=== PATIENT | female | born 1945 | race Caucasian/White ===

== ENCOUNTER → 2017-07-15 15:14 | Outpatient (CLI) | payer OTHER, SELFPAY ==
[2017-07-19 15:32] LABS: Ionized Calcium 5.6 mg/dL (4.8-5.6)
== END ==
PROVIDERS: Visit Provider Internal Medicine
DX: E83.52 Hypercalcemia (principal)
CPT/HCPCS: 36415; 82330

== ENCOUNTER → 2017-08-02 09:16 | Outpatient (CLI) | payer OTHER, SELFPAY ==
[2017-08-02 09:33] LABS: Hematocrit 36.3 % (36-46); Hemoglobin 11.7 g/dL (12.0-16.0); Mean Corpuscular HGB Conc 32.2 % (30-36); Mean Corpuscular Hemoglobin 27.7 PG (26-34); Mean Corpuscular Volume 86.1 fL (80-100); Platelet Count 230 X10^3/uL (150-400); Red Blood Cell Count 4.21 X10^6/uL (4.0-5.2); Red Cell Distribution Width 15.4 % (11.6-14.8); White Blood Cell Count 8.8 X10^3/uL (4.5-11.0)
[2017-08-02 10:07] LABS: Erythrocyte Sedimentation Rate 21 MM/HR (0-20)
== END ==
PROVIDERS: PCP Family Medicine; Visit Provider Physician Assistant
DX: M19.079 Primary osteoarthritis, unspecified ankle and foot (principal)
CPT/HCPCS: 36415; 85027; 85651

== ENCOUNTER → 2018-01-30 15:43 | Outpatient (CLI) | payer OTHER, SELFPAY ==
--- NOTE | 2018-01-30 15:45 | DI.RAD.S_ITS ---
PROCEDURE: XR LUMBAR SPINE 2-3V INDICATIONS: R/o osteoporotic fracture TECHNIQUE: 3 views of the lumbar spine were acquired. COMPARISON: [facility], , L-SPINE 2-3 VIEWS, 12/08/2007, 11:10. FINDINGS: Bones: No fracture or focal osseous destruction is seen. Diffuse endplate spurring and sclerosis. Diffuse facet arthropathy. Moderate narrowing of L4-L5 disc space, and mild narrowing of the remaining lumbar disc spaces, this appears progressed since 12/08/07. Levocurvature of the lower thoracic spine Soft tissues: Overlying bowel gas pattern is normal. No suspicious soft tissue calcifications. IMPRESSION: No fracture identified. Interval progression in multilevel lumbar disc degeneration and diffuse facet arthropathy. Levocurvature of the lower thoracic spine Dictated by: Jose Ramon Ruiz M.D. on 01/30/2018 at 16:23 Approved by: Jose Ramon Ruiz M.D. on 01/30/2018 at 16:31
== END ==
PROVIDERS: PCP Family Medicine; Visit Provider Registered Nurse
DX: M54.5 Low back pain (principal); M51.36 Other intervertebral disc degeneration, lumbar region; M47.816 Spondylosis without myelopathy or radiculopathy, lumbar region
CPT/HCPCS: 72100

== ENCOUNTER → 2018-04-14 14:12 | Outpatient (CLI) | payer OTHER, SELFPAY | PROVIDERS: PCP Family Medicine; Visit Provider Family Medicine | DX: Z13.820 Encounter for screening for osteoporosis (principal); M81.0 Age-related osteoporosis without current pathological fracture; Z78.0 Asymptomatic menopausal state; Z79.899 Other long term (current) drug therapy; Z82.62 Family history of osteoporosis | CPT/HCPCS: 77080 ==

== ENCOUNTER → 2018-05-16 09:15 | Outpatient (CLI) | payer OTHER, SELFPAY ==
[2018-05-16 11:33] LABS: BUN Creatinine Ratio 36.3 (6-22); Blood Urea Nitrogen 29 mg/dL (7-17); Calcium 10.9 mg/dL (8.4-10.2); Carbon Dioxide 31 mmol/L (22-32); Chloride 101 mmol/L (98-107); Estimated Glomerular Filt Rate > 60.0 mL/min (>60); Glucose 64 mg/dL (80-110); HEMOLYSIS < 15 (0-50); Potassium 4.1 mmol/L (3.4-5.1); Sodium 140 mmol/L (137-145)
[2018-05-16 11:48] LABS: Vitamin D 25 Hydroxy (D3) 108 ng/mL (30.0-100.0)
[2018-05-16 12:03] LABS: TSH w/ Reflex to FT4 1.61 uIU/mL (0.47-4.68)
== END ==
PROVIDERS: PCP Family Medicine; Visit Provider Family Medicine
DX: M81.0 Age-related osteoporosis without current pathological fracture (principal)
CPT/HCPCS: 36415; 80048; 82306; 84443

== ENCOUNTER → 2018-05-22 15:50 | Outpatient (CLI) | payer OTHER, SELFPAY ==
[2018-05-24 13:35] LABS: Parathyroid Hormone Int 70 pg/mL (14-64)
== END ==
PROVIDERS: PCP Family Medicine; Visit Provider Family Medicine
DX: E83.52 Hypercalcemia (principal)
CPT/HCPCS: 36415; 83970

== ENCOUNTER → 2018-06-16 08:40 | Outpatient (CLI) | payer OTHER, SELFPAY ==
[2018-06-19 16:48] LABS: Total Volume 2300 mL
== END ==
PROVIDERS: PCP Family Medicine; Visit Provider Family Medicine
DX: E21.3 Hyperparathyroidism, unspecified (principal)
CPT/HCPCS: 82530

== ENCOUNTER → 2018-06-24 09:14 | Outpatient (CLI) | payer OTHER, SELFPAY ==
[2018-06-24 10:16] LABS: Calcium 11.2 mg/dL (8.4-10.2)
[2018-06-24 12:01] LABS: Calcium 24 Hour Urine 325 mg/day (100-300); Calcium Urine Random 15.1; Collection Time Urine 24 Hours; Total Volume Urine 2150 mL
== END ==
PROVIDERS: PCP Family Medicine; Visit Provider Family Medicine
DX: E21.3 Hyperparathyroidism, unspecified (principal); E34.9 Endocrine disorder, unspecified; M81.0 Age-related osteoporosis without current pathological fracture
CPT/HCPCS: 36415; 82310; 82340

== ENCOUNTER → 2018-09-04 07:50 | Outpatient (CLI) | payer OTHER, SELFPAY ==
[2018-09-04 09:05] LABS: Calcium 11.1 mg/dL (8.4-10.2); Phosphorous 3.2 mg/dL (2.8-4.1)
[2018-09-04 09:18] LABS: Vitamin D 25 Hydroxy (D3) 105 ng/mL (30.0-100.0)
[2018-09-05 15:18] LABS: Parathyroid Hormone Int 52 pg/mL (14-64)
== END ==
PROVIDERS: PCP Family Medicine; Visit Provider Nurse Practitioner
DX: E21.3 Hyperparathyroidism, unspecified (principal); T45.2X1A Poisoning by vitamins, accidental (unintentional), initial encounter
CPT/HCPCS: 36415; 82306; 82310; 83970; 84100

== ENCOUNTER → 2018-12-01 15:58 | Outpatient (CLI) | payer OTHER, SELFPAY ==
[2018-12-01 16:48] LABS: Estimated Glomerular Filt Rate > 60.0 mL/min (>60)
== END ==
PROVIDERS: PCP Family Medicine; Visit Provider Student in an Organized Health Care Education/Training Program
DX: E21.3 Hyperparathyroidism, unspecified (principal)
CPT/HCPCS: 36415; 82565

== ENCOUNTER 2019-01-03 07:08 | Day surgery (SDC) | payer OTHER, SELFPAY ==
--- NOTE | 2018-12-29 18:37 | PM.PREOP ---
Pre-operative Note Interval Note History & Physical reviewed/Exam performed by Physician: Yes Changes to H&P: No
[2019-01-03 07:25] VITALS: BP 129/78; PULSE 53; RESP 18; TEMP 36.7; O2SAT 100
[2019-01-03] MEDS: PROPARACAINE 0.5% OPHTH SOL 2 DROPS EYE-OP (07:25)
[2019-01-03] MEDS: CATARACT EYE COMPOUND (10 DROPS/SYRINGE) 3 DROPS EYE-OP (07:28)
--- NOTE | 2019-01-03 07:31 | P.OP_ITS ---
Operative Date/Time/Diagnoses Date of procedure: 01/03/19 Time of procedure: 07:45 Procedure & Clinicians Procedure: Preoperative diagnoses: 1. Left cortical advanced cataract surgery . 2. Recent parathyroid surgery. 3. Desire for a multifocal lens. Postoperative diagnoses: Placement of a posterior chamber Symfony depth of focus intraocular lens implant. Surgeon: Viridiana Moreno MD Complications: none Specimen: None Implant: ZXROO +20.0 Blood loss: None Anesthesia: Retrobulbar with monitored standby. Blood loss: None Anesthesia: Retrobulbar with monitored standby Description of procedure: Patient has presented with decreased vision due to cataract which is affecting activities of daily living. The patient wants surgery to improve vision. The patient was taken to the operating room and given IV sedation. A retrobulbar block consisting of 6 cc of 2% xylocaine without epinephrine mixed half and half with 0.5% Marcaine with 1 cc of hyaluronidase added is placed between the medial and lateral 1/3 of the inferior orbital rim. Lid akinesia is obtain with 1% xylocaine with epinephrine infiltrated along the lid margin. The eye is manually massaged for 30 sec, prepped using Betadine solution, and draped in the usual sterile fashion. e-port incision was performed 90 degrees from the planned corneal wound. Phenylephrine 1.5% mixed with 1% xylocaine 0.2 cc was placed into the anterior chamber. Though there was cortical spokes through the visual axis capsular dye was not needed. A 360 degree capsulorrhexis style capsulotomy was then performed with a cystitome needle on a [employer]. Hydrodelineation and hydrodissection were performed. The phacoemulsification unit is introduced, and sculpting used to groove the central lens. It is then removed in chopping mode. Epi nucleus is removed with epinuclear mode and irrigation aspiration was used to remove the peripheral cortex. The posterior capsule is polished. The intraocular lens is selected and confirmed to be a Symfony style and of the correct power confirmed, and placed in the posterior chamber. The pupil was not constricted with Miostat. The wound was stromally hydrated and tested for leaks, there was none and was left sutureless. Vigamox 0.1 cc was placed into the anterior chamber. Kenalog 0.2 cc was placed in the superior subconjunctival space. A drop of antibiotic and was placed and the eye was patched and shielded. The patient was stable and returned to the recovery room in excellent condition. Dictated by: Viridiana Moreno MD Copy to: [facility]
[2019-01-03 07:33] VITALS: BMI 20.7
[2019-01-03] MEDS: ERYTHROMYCIN OPHTH 1 GM OINT 1 APPLIC EYE-LEFT (08:13)
[2019-01-03] MEDS: MOXIFLOXACIN INJ 5 MG/ML VIAL EYE-OP (08:14)
[2019-01-03] MEDS: HYALURONATE SODIUM 10 MG/ML SYRINGE INJ (08:14)
[2019-01-03] MEDS: TRIAMCINOLONE 50 MG/5 ML VIAL INJ (08:15)
[2019-01-03] MEDS: PHENYLEPHRINE/LIDOCAINE VIAL (OR) 0.2 ML EYE-OP (08:15)
[2019-01-03] MEDS: LIDOCAINE 2% 4 ML, BUPIVACAINE 0.5% (PF) 4 ML, HYALURONIDASE 150 UNIT INJ (08:15)
[2019-01-03] MEDS: CHONDROIDTIN/SOD HYALURONATE 1.05 ML SYRINGE INTRAOCULA (08:18)
[2019-01-03 08:40] VITALS: BP 133/81; PULSE 51; RESP 16; TEMP 36.6; O2SAT 100
== END 2019-01-03 09:00 | disposition home or self-care (01) ==
LOC: OR 07:10
PROVIDERS: PCP Family Medicine; Visit Provider Ophthalmology
PROC: (CPT 66984; principal; 2019-01-03 07:45)
DX: H25.012 Cortical age-related cataract, left eye (principal); H43.393 Other vitreous opacities, bilateral; H04.123 Dry eye syndrome of bilateral lacrimal glands
CPT/HCPCS: 66984; J2704; J3301; J3470; V2788

== ENCOUNTER 2019-01-10 07:29 | Day surgery (SDC) | payer OTHER, SELFPAY ==
--- NOTE | 2019-01-09 17:53 | PM.PREOP ---
Pre-operative Note Interval Note History & Physical reviewed/Exam performed by Physician: Yes Changes to H&P: No
--- NOTE | 2019-01-09 17:55 | PM.OP.1 ---
Operative Date/Time/Diagnoses Date of procedure: 01/10/19 Time of procedure: 08:45 Procedure & Clinicians Procedure: Preoperative diagnoses: 1. Right significant nuclear sclerotic and cortical cataract through the visual axis. 2. Elective depth the focus multifocal lens desired. 3. Recent parathyroid surgery. 4. Corneal dystrophy. 5. Dry eye syndrome. Postoperative diagnoses: 1. Cataract removed by phacoemulsification with placement of a Symfony depth of focus posterior chamber intraocular lens. Procedure: Phacoemulsification with posterior chamber intraocular lens implant Surgeon: Viridiana Moreno MD Complications: None Specimen: None Implant: ZXROO+21.0 Blood loss: None Anesthesia: Retrobulbar with monitored standby Description of procedure: Patient presents with a complaint of decreased vision due to cataract which is affecting activities of daily living. This is affecting both her distance and reading vision and she chooses a multifocal implant to improve her non corrected range of vision. The patient wants surgery to improve vision overall and understands she may still need to wear glasses post surgery. The patient was taken to the operating room and given IV sedation. A retrobulbar block consisting of 6 cc of 2% xylocaine without epinephrine mixed half and half with 0.5% Marcaine with 1 cc of hyaluronidase added is placed between the medial and lateral 1/3 of the inferior orbital rim. The eye is manually massaged for 30 sec, prepped using Betadine solution, and draped in the usual sterile fashion. Temporal approach was made, a 1 mm side-port incision was made 90? from the proposed clear corneal incision position. It was noted that there was slight irregularity in her superior cornea before any surgery occurred suggesting corneal dystrophy. There were no erosions during the surgery. Phenylephrine 1.5% mixed with 1% xylocaine 0.2 cc was placed into the anterior chamber. Viscoat followed by Healon was then placed. A 2.6 mm clear incision with a 2.6 mm blade was placed. A 360 degree capsulorrhexis style capsulotomy was then performed with a cystitome needle on a [employer]. Hydrodelineation and hydrodissection were performed. The phacoemulsification unit is introduced, and sculpting notice used to groove the central lens. It is then removed in chopping mode. Epi nucleus is removed with epinuclear mode and irrigation aspiration was used to remove the peripheral cortex. The posterior capsule is polished. The intraocular lens is selected, inspected, power confirmed, and placed in the posterior chamber. It was carefully inspected for centration. The wound was stromally hydrated and tested for leaks, there was none and it was left sutureless. Vigamox 0.1 cc was placed into the anterior chamber. Kenalog 0.2 cc was placed in the superior subconjunctival space. A drop of antibiotic and was placed and the eye was patched and shielded. The patient was stable and returned to the recovery room in excellent condition. Dictated by: Viridiana Moreno MD Copy to: [facility]
[2019-01-10] MEDS: PROPARACAINE 0.5% OPHTH SOL 2 DROPS EYE-OP (08:05)
[2019-01-10] MEDS: CATARACT EYE COMPOUND (10 DROPS/SYRINGE) 3 DROPS EYE-OP ×2 (08:07→08:24)
[2019-01-10 08:08] VITALS: BP 141/82; PULSE 55; RESP 20; TEMP 36.4; O2SAT 97
[2019-01-10 08:09] VITALS: BMI 21.1
--- NOTE | 2019-01-10 09:04 | SUR.OPER ---
Supine on eye stretcher, head on extension cradle secured with tape. Arms tucked at sides with blanket. Pillow under knees.
[2019-01-10] MEDS: CHONDROIDTIN/SOD HYALURONATE 1.05 ML SYRINGE INTRAOCULA (09:09)
[2019-01-10] MEDS: ERYTHROMYCIN OPHTH 1 GM OINT 1 APPLIC EYE-RIGHT (09:09)
[2019-01-10] MEDS: HYALURONATE SODIUM 10 MG/ML SYRINGE INJ (09:10)
[2019-01-10] MEDS: MOXIFLOXACIN INJ 5 MG/ML VIAL EYE-OP (09:10)
[2019-01-10] MEDS: PHENYLEPHRINE/LIDOCAINE VIAL (OR) 0.2 ML EYE-OP (09:12)
[2019-01-10] MEDS: TRIAMCINOLONE 50 MG/5 ML VIAL INJ (09:13)
[2019-01-10] MEDS: LIDOCAINE 2% 4 ML, BUPIVACAINE 0.5% (PF) 4 ML, HYALURONIDASE 150 UNIT INJ (09:14)
[2019-01-10] MEDS: BALANCED SALT IRRIG SOLN NO.2 500 ML, EPINEPHrine 1 MG IRR (09:16)
[2019-01-10 09:45] VITALS: BP 134/77; PULSE 56; RESP 16; TEMP 36.6; O2SAT 98
== END 2019-01-10 09:55 | disposition home or self-care (01) ==
LOC: OR 07:33
PROVIDERS: Family Provider Family Medicine; PCP Family Medicine; Visit Provider Ophthalmology
PROC: (CPT 66984; principal; 2019-01-10 08:45)
DX: H25.811 Combined forms of age-related cataract, right eye (principal); H18.50 Unspecified hereditary corneal dystrophies; H04.129 Dry eye syndrome of unspecified lacrimal gland
CPT/HCPCS: 66984; J0171; J2704; J3301; J3470; V2788

== ENCOUNTER → 2019-08-22 14:34 | Outpatient (CLI) | payer MEDICARE, SELFPAY | PROVIDERS: Family Provider Family Medicine; PCP Family Medicine; Referring Provider Family Medicine; Visit Provider Family Medicine | DX: M81.0 Age-related osteoporosis without current pathological fracture (principal); Z78.0 Asymptomatic menopausal state; Z82.62 Family history of osteoporosis | CPT/HCPCS: 77080 ==

== ENCOUNTER → 2019-11-29 15:52 | Outpatient (CLI) | payer MEDICARE, SELFPAY ==
--- NOTE | 2019-11-29 | DI.MG.S_ITS ---
BILATERAL DIGITAL SCREENING MAMMOGRAM 3D/2D WITH CAD: 11/29/2019 CLINICAL: Routine screening. Family history of breast cancer. Comparison is made to exams dated: 06/27/2018 mammogram, 06/20/2017 mammogram, and 05/17/2016 mammogram - [facility]. The tissue of both breasts is extremely dense, which lowers the sensitivity of mammography. Current study was also evaluated with a Computer Aided Detection (CAD) system. No significant masses, calcifications, or other findings are seen in either breast. There has been no significant interval change. IMPRESSION: NEGATIVE There is no mammographic evidence of malignancy. A 1 year screening mammogram is recommended. This exam was interpreted at Station ID: [id number]. NOTE: For mammograms, a report in lay terms will be sent to the patient. Approximately 15% of breast malignancies will not be visualized mammographically. In the management of a palpable breast mass, a negative mammogram must not discourage biopsy of a clinically suspicious lesion. Electronically Signed By: Jack rousseau/ana:11/29/2019 17:19:26 copy to: ANA PAULA MAURER letter sent: Normal Exam ACR BI-RADS Category 1: Negative [id number]
== END ==
PROVIDERS: Family Provider Family Medicine; PCP Family Medicine; Referring Provider Family Medicine; Visit Provider Family Medicine
DX: Z12.31 Encounter for screening mammogram for malignant neoplasm of breast (principal); Z80.3 Family history of malignant neoplasm of breast
CPT/HCPCS: 77063; 77067

== ENCOUNTER → 2020-08-13 10:44 | Outpatient (CLI) | payer MEDICARE, OTHER, SELFPAY ==
--- NOTE | 2020-08-13 10:46 | DI.RAD.S_ITS ---
PROCEDURE: FL BARIUM SWALLOW INDICATIONS: dysphagia COMPARISON: None. FINDINGS: Function: There is normal esophageal peristalsis. No elicited gastroesophageal reflux. There is normal transit of a calibrated barium tablet through the esophagus into the stomach. Morphology: Air-contrast images demonstrate normal mucosal morphology. Single contrast views show no esophageal strictures, extrinsic mass effects, or diverticula. Limited images of the stomach demonstrate normal appearance. IMPRESSION: Unremarkable exam Dictated by: Modesta Dickerson M.D. on 08/13/2020 at 13:02 Approved by: Modesta Dickerson M.D. on 08/13/2020 at 13:02
== END ==
PROVIDERS: Family Provider Family Medicine; PCP Family Medicine; Referring Provider Family Medicine; Visit Provider Family Medicine
DX: R13.10 Dysphagia, unspecified (principal)
CPT/HCPCS: 74220

== ENCOUNTER → 2020-12-11 14:39 | Outpatient (CLI) | payer MEDICARE, OTHER, SELFPAY ==
--- NOTE | 2020-12-11 | DI.MG.S_ITS ---
BILATERAL DIGITAL SCREENING MAMMOGRAM 3D/2D WITH CAD: 12/11/2020 CLINICAL: Routine screening. Family history of breast cancer. Comparison is made to exams dated: 11/29/2019 mammogram - [facility], 06/27/2018 mammogram, 06/20/2017 mammogram, and 04/21/2015 mammogram - [facility]. The tissue of both breasts is extremely dense, which lowers the sensitivity of mammography. Current study was also evaluated with a Computer Aided Detection (CAD) system. There is an asymmetry with a microlobulated margin in the left breast middle depth central to the nipple seen on the mediolateral oblique view only. Finding is seen only on tomography. No other significant masses, calcifications, or other findings are seen in either breast. IMPRESSION: INCOMPLETE: NEEDS ADDITIONAL IMAGING EVALUATION The asymmetry in the left breast is indeterminate. Additional views with possible ultrasound are recommended. This exam was interpreted at Station ID: [id number]. NOTE: For mammograms, a report in lay terms will be sent to the patient. Approximately 15% of breast malignancies will not be visualized mammographically. In the management of a palpable breast mass, a negative mammogram must not discourage biopsy of a clinically suspicious lesion. Electronically Signed By: Krystian Conley M.D. slc/:12/11/2020 16:16:13 copy to: A[facility] PAUL[facility] MAURER letter sent: Additional Imaging Needed ACR BI-RADS Category 0: Incomplete 3340F
== END ==
PROVIDERS: Family Provider Family Medicine; PCP Family Medicine; Referring Provider Family Medicine; Visit Provider Family Medicine
DX: Z12.31 Encounter for screening mammogram for malignant neoplasm of breast (principal); Z80.3 Family history of malignant neoplasm of breast
CPT/HCPCS: 77063; 77067

== ENCOUNTER → 2021-11-19 07:11 | Outpatient (CLI) | payer MEDICARE, OTHER, SELFPAY ==
[2021-11-19 09:34] LABS: Hemoglobin A1C% w Est Avg Glu 5.5 % (4.0-6.0)
[2021-11-19 10:20] LABS: Alanine Aminotransferase 23 IU/L (<35); Albumin Globulin Ratio 1.4 (1.0-2.8); Alkaline Phosphatase 69 U/L (38-126); Aspartate Aminotransferase 25 IU/L (14-36); BUN Creatinine Ratio 26.6 (6-22); Bilirubin Total 0.7 mg/dL (0.2-1.3); Blood Urea Nitrogen 21 mg/dL (7-17); Calcium 8.8 mg/dL (8.4-10.2); Carbon Dioxide 30 mmol/L (22-32); Chloride 103 mmol/L (98-107); Cholesterol 214 mg/dL (140-199); Estimated Glomerular Filt Rate > 60 mL/min (>60); Globulin 2.9 g/dL (1.7-4.1); Glucose 89 mg/dL (80-110); HDL Cholesterol 105 mg/dL (40-60); HEMOLYSIS < 15 (0-50); LDL Cholesterol Calculated 100 mg/dL (<100); Potassium 4.6 mmol/L (3.4-5.1); Sodium 139 mmol/L (137-145); Total Protein 6.9 g/dL (6.3-8.2); Triglycerides 44 mg/dL (35-150)
[2021-11-19 10:46] LABS: TSH w/ Reflex to FT4 2.05 uIU/mL (0.47-4.68)
== END ==
PROVIDERS: Family Provider Family Medicine; PCP Family Medicine; Referring Provider Family Medicine; Visit Provider Family Medicine
DX: I83.93 Asymptomatic varicose veins of bilateral lower extremities (principal); M81.0 Age-related osteoporosis without current pathological fracture; E89.2 Postprocedural hypoparathyroidism
CPT/HCPCS: 36415; 80053; 80061; 83036; 84443

== ENCOUNTER → 2022-02-04 09:44 | Outpatient (CLI) | payer MEDICARE, OTHER, SELFPAY ==
[2022-02-04 12:55] LABS: COVID19 -Nasal RAPID Negative (Negative)
== END ==
PROVIDERS: Family Provider Family Medicine; PCP Family Medicine; Visit Provider Surgery
DX: Z01.812 Encounter for preprocedural laboratory examination (principal); Z20.822 Contact with and (suspected) exposure to COVID-19
CPT/HCPCS: 87635; C9803

== ENCOUNTER 2022-02-05 08:17 | Day surgery (SDC) | payer MEDICARE, OTHER, SELFPAY ==
--- NOTE | 2022-02-05 | PATH_ITS ---
[facility] Accession Number: [id number] . 01 Material submitted: . colon - ASCENDING COLON POLYP. Modifiers: ascending . 01 Diagnosis: Ascending Colon Polyp, Biopsy: Tubular adenoma. MRV 02/08/2022 1324 Local . 01 Electronically signed: . Annelise Rich MD, Pathologist NPI- [id number] . 01 Gross description: . The specimen is received in formalin, labeled with the patient's name, , and ascending colon polyp, and consists of four irregular vazquez soft tissue fragments ranging from 0.1 cm to 0.3 cm in greatest dimension. Submitted entirely in cassette A1. ([id number]) /FRR 02/06/2022 181 Local . 01 Pathologist provided ICD-10: D12.2 . 01 CPT . 686549 Specimen Comment: A courtesy copy of this report has been sent to [phone] Performed at: 01 [facility] [address] [place] [address] [address] [facility], [place], [place] [id number] MD Giuseppe Castro MD Phone: [phone]
[2022-02-05 08:33] VITALS: BP 147/81; PULSE 55; RESP 16; TEMP 36.1; O2SAT 100; BMI 21.4
--- NOTE | 2022-02-05 09:10 | P.HP_ITS ---
History of Present Illness History of Present Illness Date Patient Seen: 02/05/22 Time Patient Seen: 09:10 Chief complaint: SDC Narrative: The patient presents for colorectal screening. Colonoscopy 5 years ago demonstrated benign polyps. No personal or family history of colon cancer. On further history denies any recent gastrointestinal symptoms. No nausea, vomiting, abdominal pain, loss of appetite, unexplained weight loss, change in bowel habits, diarrhea, constipation, melena, hematochezia, or bright red blood per rectum. Patient History Medical History (Updated 02/05/22 @ 09:11 by Jamir Gupta MD) Cataract (lens) fragments in eye following cataract surgery, left eye Colon polyps (10/30/10) Osteoporosis Tibial plateau fracture, right (10/19/13) Surgical History H/O parathyroidectomy History of colonoscopy with polypectomy (10/30/10) History of colonoscopy with polypectomy (08/10/16) Status post osteotomy (11/30/16) Family & Social History Family History Brother Mesothelioma Sister Bladder cancer Social History: household members spouse lives independently Yes caregiver/support person No Tobacco & Substance use: Smoking Status Never smoker alcohol intake current alcohol intake frequency a few times a week Substance Use Type does not use Meds Home Medications and Allergies Home Medications Medication Instructions Recorded Confirmed Type calcium-magnesium 750 mg-465 mg tab PO 01/30/18 01/28/22 History tablet sodium,potassium,mag sulfates 17.5 See Rx Instructions PO .COMPLEX 01/21/22 02/05/22 Rx gram-3.13 gram-1.6 gram oral soln #354 mL (Suprep Bowel Prep Kit) aspirin 81 mg tablet,delayed 81 mg PO BID 01/28/22 02/05/22 History release (Adult Aspirin Regimen) cholecalciferol (vitamin D3) 10 10 mcg PO BID 01/28/22 02/05/22 History mcg (400 unit) capsule Allergies Allergy/AdvReac Type Severity Reaction Status Date / Time No Known Drug Allergies Allergy Verified 11/17/21 09:45 Exam Vital Signs (past 8 hours): - 02/05/22 08:33 Temperature 97 F L Pulse Rate 55 L Respiratory Rate 16 Blood Pressure 147/81 H Pulse Oximetry 100 Oxygen Delivery Method Room Air Oxygen Delivery Method Room Air Narrative Exam Narrative: General adult woman alert oriented no acute distress Assessment & Plan Assessment and plan (1) Colon polyps: Status: Acute Assessment & Plan narrative: The patient requires colorectal screening and colonoscopy is recommended. Technical details were discussed. Risks, benefits, alternatives explained. Risks including but not limited to myocardial infarction, aspiration, bleeding, pain, missed lesion, incomplete examination, need for further radiographic studies, colonic perforation, and need for major abdominal surgery were di scussed. All questions were answered to their satisfaction, and they are in agreement with this plan. Time Spent With Patient Critical Care time: I spent a total of [] minutes of critical care time on this patient's care today; this time is exclusive of procedural time.
--- NOTE | 2022-02-05 09:12 | PM.OP.COLON ---
Operative Date/Time/Diagnoses Date of procedure: 02/05/22 Time of procedure: 09:12 Pre-op diagnosis: Personal history of colonic polyps Post-op diagnosis: same Procedure & Clinicians Study performed: Colonoscopy Same procedure as scheduled: Yes Indications: Personal history of colonic polyps Surgeon: Jamir Gupta Procedure Notes Procedure in detail: The history and physical was performed/updated and the patient is ASA class is 2. The procedure was discussed in detail with the patient. Potential risks complications including infection, bleeding, missed diagnosis, perforation, need for surgery, and were explained. Their questions were answered and informed consent was obtained. Patient was brought to the procedure room and placed standard monitoring equipment. The patient's vital signs were monitored continuously throughout the entire procedure. Prior to starting time-out was performed. The patient was placed in the left lateral recumbent position. Procedural sedation was administered by anesthesia. Examination began with a thorough inspection of the perianal area there was no evidence of fissures, fistulae, external hemorrhoids or cutaneous malignancy. The colonoscopy scope was then placed into the anal canal and was advanced to the cecum, which was identified by the ileocecal valve, the appendiceal orifice and the confluence of the taenia. The scope was then slowly withdrawn examining colon thoroughly in all directions, irrigating it of any residual stool. FINDINGS 1. Ascending colon-5 mm polyp removed with biopsy forceps 2. Internal hemorrhoids The patient tolerated the procedure well. They will be discharged once criteria are met. The prep was of good/excellent quality. The withdrawl time was 6 minutes. Specimen(s): other (Ascending colon polyp) Impression: Colonic polyp Post-procedure Recommendations: High fiber diet Plan for aftercare: Follow-up depending on pathology findings Disposition: same day surgery
[2022-02-05 09:37] VITALS: BP 117/73; PULSE 68; RESP 13; TEMP 36.3; O2SAT 100
[2022-02-05 09:42] VITALS: BP 113/70; PULSE 74; RESP 13; O2SAT 100
[2022-02-05 09:51] VITALS: BP 121/76; PULSE 61; RESP 16; TEMP 36.6; O2SAT 99
== END 2022-02-05 10:05 | disposition home or self-care (01) ==
PROVIDERS: Family Provider Family Medicine; PCP Family Medicine; Referring Provider Surgery; Visit Provider Surgery
PROC: 0DJD8ZZ Inspection of Lower Intestinal Tract, Via Natural or Artificial Opening Endoscopic (ICD-10-PCS; CPT 45378; principal; 2022-02-05 09:15)
DX: Z12.11 Encounter for screening for malignant neoplasm of colon (principal); Z86.010 Personal history of colon polyps; K64.8 Other hemorrhoids; D12.2 Benign neoplasm of ascending colon
CPT/HCPCS: 45380

== ENCOUNTER → 2022-02-09 11:48 | Outpatient (CLI) | payer MEDICARE, OTHER, SELFPAY | PROVIDERS: Family Provider Family Medicine; PCP Family Medicine; Referring Provider Physician Assistant; Visit Provider Physician Assistant | DX: M81.0 Age-related osteoporosis without current pathological fracture (principal); Z78.0 Asymptomatic menopausal state; E89.2 Postprocedural hypoparathyroidism; Z79.83 Long term (current) use of bisphosphonates; Z87.311 Personal history of (healed) other pathological fracture | CPT/HCPCS: 77080 ==

== ENCOUNTER → 2022-12-16 07:18 | Outpatient (CLI) | payer MEDICARE, OTHER, SELFPAY ==
[2022-12-16 07:56] LABS: Alanine Aminotransferase 28 IU/L (<35); Albumin 4.2 g/dL (3.5-5.0); Albumin Globulin Ratio 1.4 (1.0-2.8); Alkaline Phosphatase 69 U/L (38-126); Aspartate Aminotransferase 26 IU/L (14-36); BUN Creatinine Ratio 32.9 (6-22); Bilirubin Total 0.9 mg/dL (0.2-1.3); Blood Urea Nitrogen 24 mg/dL (7-17); Calcium 9.1 mg/dL (8.4-10.2); Carbon Dioxide 28 mmol/L (22-32); Chloride 105 mmol/L (98-107); Cholesterol 210 mg/dL (140-199); Estimated Glomerular Filt Rate > 60 mL/min (>60); Globulin 3.1 g/dL (1.7-4.1); Glucose 97 mg/dL (80-110); HDL Cholesterol 104 mg/dL (40-60); HEMOLYSIS < 15 (0-50); LDL Cholesterol Calculated 92 mg/dL (<100); Potassium 3.9 mmol/L (3.4-5.1); Sodium 139 mmol/L (137-145); Total Protein 7.3 g/dL (6.3-8.2); Triglycerides 70 mg/dL (35-150)
== END ==
PROVIDERS: Family Provider Family Medicine; PCP Family Medicine; Referring Provider Family Medicine; Visit Provider Family Medicine
DX: Z13.220 Encounter for screening for lipoid disorders (principal); E89.2 Postprocedural hypoparathyroidism
CPT/HCPCS: 36415; 80053; 80061

== ENCOUNTER → 2024-01-17 07:20 | Outpatient (CLI) | payer MEDICARE, OTHER, SELFPAY ==
[2024-01-17 08:38] LABS: Cholesterol 230 mg/dL (140-199); Triglycerides 79 mg/dL (35-150)
[2024-01-17 08:46] LABS: HDL Cholesterol 114 mg/dL (40-60); LDL Cholesterol Calculated 100 mg/dL (<100)
== END ==
PROVIDERS: Family Provider Family Medicine; PCP Family Medicine; Referring Provider Family Medicine; Visit Provider Family Medicine
DX: Z13.220 Encounter for screening for lipoid disorders (principal)
CPT/HCPCS: 36415; 80061

== ENCOUNTER → 2024-11-14 06:57 | Outpatient (CLI) | payer MEDICARE, OTHER, SELFPAY ==
[2024-11-14 08:02] LABS: Alanine Aminotransferase 21 IU/L (<35); Albumin 4.5 g/dL (3.5-5.0); Albumin Globulin Ratio 1.4 (1.0-2.8); Alkaline Phosphatase 73 U/L (38-126); Blood Urea Nitrogen 27 mg/dL (7-17); Calcium 9.3 mg/dL (8.4-10.2); Carbon Dioxide 28 mmol/L (22-32); Chloride 103 mmol/L (98-107); Cholesterol 253 mg/dL (140-199); Estimated Glomerular Filt Rate > 60 mL/min (>60); Globulin 3.2 g/dL (1.7-4.1); Glucose 100 mg/dL (70-99); Potassium 4.4 mmol/L (3.4-5.1); Sodium 138 mmol/L (137-145); Total Protein 7.7 g/dL (6.3-8.2); Triglycerides 70 mg/dL (35-150)
[2024-11-14 08:14] LABS: HEMOLYSIS 24 (0-50)
[2024-11-14 08:17] LABS: HDL Cholesterol 132 mg/dL (40-60)
== END ==
PROVIDERS: Family Provider Family Medicine; PCP Family Medicine; Referring Provider Family Medicine; Visit Provider Family Medicine
DX: Z13.220 Encounter for screening for lipoid disorders (principal); Z86.39 Personal history of other endocrine, nutritional and metabolic disease
CPT/HCPCS: 36415; 80053; 80061

== ENCOUNTER → 2024-11-19 09:39 | Outpatient (CLI) | payer MEDICARE, OTHER, SELFPAY ==
--- NOTE | 2024-11-19 09:40 | DI.RAD.S_ITS ---
PROCEDURE: XR DEXA AXIAL SKELETON INDICATIONS: OSTEOPOROSIS SCREENING COMPARISON: [facility], [place], XR DEXA AXIAL SKELETON, 02/09/2022, 12:11. FINDINGS: Lumbar Spine (L2 through L4): Bone mineral density 1.063 g/cm2, T score -0.1, normal, comparison cannot be made due to different vertebral bodies scanned.. Left Femoral Neck: Bone mineral density 0.567 g/cm2, T score -2.5, osteoporosis. Left Hip: Bone mineral density 0.797 g/cm2, T score -1.2, osteopenia, change from previous 2.1%. Fracture Risk Calculation (when applicable): 10-year fracture risk of a major osteoporotic fracture 17% and hip fracture 6.0%. This FRAX score is not valid because one or more T-scores are below-2.5. (T score greater or equal to -1.0 to: NORMAL) (T score from -1.1 to -2.4: OSTEOPENIA) (T score less than or equal to -2.5: OSTEOPOROSIS) IMPRESSION: Osteoporosis. The patient is at a high risk of fracture. No significant change compared to prior. Follow-up guidelines as follows: Osteoporosis: Consider a repeat DEXA and Vertebral Fracture Assessment (VFA) exam in 2 years or sooner if medically necessary, to reassess this patient's status. Osteopenia: Consider a repeat DEXA in 2-3 years to reassess this patient's status, or if there is a new clinical indication. Normal: Consider a repeat DEXA in 5 years or sooner, or if there is a new clinical indication. All treatment decisions require clinical judgment and consideration of individual patient factors, including patient preferences, comorbidities, previous drug use, risk factors not captured in the FRAX model (e.g., frailty, falls, vitamin D deficiency, increased bone turnover, interval significant decline in bone density ) and possible under- or over-estimation of fracture risk by FRAX. In addition, the NOF Guide recommends that FDA-approved medical therapies be considered in postmenopausal women and men age >= 50 years with a: * Hip or vertebral (clinical or morphometric) fracture * T-score of <=-2.5 at the spine or hip * Ten-year fracture probability by FRAX of >= 3% for hip fracture or >=20% for major osteoporotic fracture. Dictated by: Shahana Medellin M.D. on 11/19/2024 at 17:53 Approved by: Shahana Medellin M.D. on 11/19/2024 at 17:56
== END ==
PROVIDERS: Family Provider Family Medicine; PCP Family Medicine; Referring Provider Family Medicine; Visit Provider Family Medicine
DX: M81.0 Age-related osteoporosis without current pathological fracture (principal)
CPT/HCPCS: 77080